=== PATIENT | female | born 1990 | race African-American/Black ===

== ENCOUNTER 2017-05-10 11:28 | Emergency (ER) | payer OTHER ==
[~2017-05-10] VITALS: Ht 167.6 cm; Wt 80.3 kg
[2017-05-10 11:28] VITALS: BP 144/83
[~2017-05-10 11:28] MED LIST: TRAZ50TA15 PO
--- NOTE | 2017-05-10 13:00 | ED.ADGEN ---
Past History Past Medical History: No Pertinent History Past Surgical History: No Surgical History Alcohol Use: None Drug Use: None Adult General HPI HPI Patient is a 26-year-old woman, with history of left knee pain and swelling, status post tearing her ACL several years ago, who is currently scheduled for a fourth surgery on his left knee. Patient wears a brace, and uses crutches, states that she is scheduled to follow-up with her orthopedist for surgery in a week and a half. 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 Patient states that [place] that this is the approved course for her at this time due to her injury and her chart, however her superiors are requesting a note indicating that this is the case. Patient states that she did attempt to contact her orthopedist today, but she is out of the office. 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 She denies any new or different symptoms, and states that she just requires and noted to excuse her from these activities until she is cleared by her orthopedist. Review of Systems Review of Systems Constitutional: Denies fever or chills [] Eyes: Denies change in visual acuity, redness, or eye pain [] HENT: Denies nasal congestion or sore throat [] Respiratory: Denies cough or shortness of breath [] Cardiovascular: No additional information not addressed in HPI [] GI: Denies abdominal pain, nausea, vomiting, bloody stools or diarrhea [] : Denies dysuria or hematuria [] Musculoskeletal: Denies back pain, left knee pain. Chronic. Integument: Denies rash or skin lesions [] Neurologic: Denies headache, focal weakness or sensory changes [] Endocrine: Denies polyuria or polydipsia [] Allergies Allergies Allergies Coded Allergies Type Severity Reaction Last Updated Verified No Known Drug Allergies 12/12/14 No Physical Exam Physical Exam Constitutional: Well developed, well nourished, no acute distress, non-toxic appearance. [] HENT: Normocephalic, atraumatic, bilateral external ears normal, oropharynx moist, no oral exudates, nose normal. [] Eyes: PERRLA, EOMI, conjunctiva normal, no discharge. [] Neck: Normal range of motion, no tenderness, supple, no stridor. [] Cardiovascular:Heart rate regular rhythm, no murmur, S1, S2, rubs or gallops. [] Lungs & Thorax: Bilateral breath sounds clear to auscultation, no wheezing, rhonchi, rales. No chest or crepitus or tenderness. [] Abdomen: Bowel sounds normal, soft, no tenderness, no masses, no rebound, rigidity, no guarding, no pulsatile masses. [] Skin: Warm, dry, no erythema, no rash. [] Back: No tenderness, no CVA tenderness. [] Extremities: Patient with tender to palpation throughout the left knee, she has a brace in place, no cyanosis, no clubbing, ROM intact, no edema. [] Neurologic: Alert and oriented X 3, normal motor function, normal sensory function, no focal deficits noted. [] Psychologic: Affect normal, judgement normal, mood normal. [] Current Patient Data Vital Signs Vital Signs Date Time Temp Pulse Resp B/P (MAP) Pulse Ox O2 Delivery O2 Flow Rate FiO2 05/10/17 11:28 99.2 129 18 95 Room Air EKG EKG Not indicated. [] Radiology/Procedures Radiology/Procedures Not indicated. [] Course & Med Decision Making Course & Med Decision Making Pertinent Labs and Imaging studies reviewed. (See chart for details) Patient denies any new injuries, or change in her chronic pain, states that she just was unable to reach her physician's office today to obtain additional documentation. I offered to contact the office, patient states her doctor is not there and she does not have a phone number on her for her provider. She declined additional evaluation and examination in the ED at this time, has returning brace in place, and is ambulatory with crutches without difficulty. She states she does not need any additional medications. After discussion, I did complete a note for the patient which stated that she would need to be cleared by her orthopedist before returning to prolonged outdoor exposure, or activities that would require standing or ambulation. Patient states she will take noted her superiors, and if there are any issues with this particular note she will contact orthopedist, she'll return to the ED if any new or concerning symptoms develop. Patient discharged in stable condition with plan as above. Final Impression Final Impression [] Problems: Dragon Disclaimer Dragon Disclaimer This electronic medical record was generated, in whole or in part, using a voice recognition dictation system. Departure: Impression: Primary Impression: Knee pain Disposition: 01 HOME, SELF-CARE Condition: IMPROVED SHIRLEY BARNETT DO May 10, 2017 13:00
== END 2017-05-10 12:19 | disposition home or self-care (01) ==
LOC: ER 11:28
DX: G89.29 Other chronic pain (principal); M25.562 Pain in left knee; R22.42 Localized swelling, mass and lump, left lower limb
CPT/HCPCS: 99281

== ENCOUNTER 2017-09-19 03:38 | Emergency (ER) | payer OTHER ==
[~2017-09-19] VITALS: Ht 167.6 cm; Wt 80.3 kg
--- NOTE | 2017-09-19 04:01 | PHYS DOC ---
General Chief Complaint: ABDOMINAL PAIN Stated Complaint: RIGHT SIDE FLANK PAIN Time Seen by MD: 03:40 Source: patient Exam Limitations: no limitations Problems: History of Present Illness Initial Comments Patient is a 27-year-old female who comes in the ED complaining of right lower quadrant abdominal pain. Patient states that for the past 3 days she's had worsening lower abdominal and now right lower quadrant pain. She says initially she thought maybe she had pulled a muscle or something, however for the past day and a half she's been sleeping more and not very active. She has not had much of an appetite today and earlier did have one episode of emesis, she's also had a few loose stools today. Pain is described as sharp and at times throbbing, worse with palpation and certain movements and relieved somewhat with rest. She says that on the way to the emergency department hitting bumps in the car caused pain in the area, she does admit to having a few glasses of wine earlier this evening. ED vital signs are stable Timing/Duration: other Severity: moderate Modifying Factors: worse with movement, improves with rest Associated Symptoms: nausea/vomiting, other Allergies: Coded Allergies: No Known Drug Allergies (Unverified , 09/19/17) Past Medical History Medical History: no pertinent history Surgical History: other (herniorrhaphy) Social History Smoker: non-smoker Alcohol: occasionally Drugs: none Review of Systems Constitutional: denies chills, denies diaphoresis, denies fever, denies malaise Respiratory: denies cough, denies shortness of breath Cardiovascular: denies chest pain, denies palpitations Gastrointestinal: see HPI, denies constipation Genitourinary: denies dysuria, denies frequency, denies hematuria Musculoskeletal: denies back pain, denies joint swelling, denies neck pain Psychiatric/Neurological: denies headache, denies numbness, denies paresthesia Physical Exam General Appearance: WD/WN (mild alcohol odor noted), mild distress (appears uncomfortable) Ear, Nose, Throat: hearing grossly normal, normal ENT inspection, normal pharynx Neck: non-tender, supple Respiratory: normal breath sounds, no respiratory distress Cardiovascular: normal peripheral pulses, regular rate, rhythm Gastrointestinal: soft (nondistended, right lower quadrant tenderness to palpation without rebound guarding or mass, bowel sounds normal) Rectal: deferred Back: no CVA tenderness, no vertebral tenderness Extremities: non-tender, normal inspection Neurologic/Psychiatric: private inquiry agent II-XII nml as tested, no motor/sensory deficits, alert (no slurring or discoordination), normal mood/affect, oriented x 3 Skin: normal color, warm/dry Orders, Labs, Meds Urine test negative Serum alcohol level 210, potassium 3.4 otherwise reassuring labs and urine workup PATIENT: LUIS ARMANDO ROTHMAN ACCOUNT: [id number] : 1990 LOCATION: ER AGE: 27 SEX: F EXAM STATUS: REG ER ORD. PHYSICIAN: JOSHUA DAMICO DO REASON: RLQ pain PROCEDURE: CT ABD PELV W/ IV CONTRST ONLY CT abdomen and pelvis with contrast. HISTORY: Right lower quadrant abdominal pain CT scan of the abdomen and pelvis was done using 75 mL Omnipaque 300 contrast. Lung bases are clear. There is no effusion. Osseous structures are unremarkable. A liver lesion is not identified. There is no calcified gallstone. Spleen and adrenal glands are normal. Pancreas is normal. There is no mass or hydronephrosis in the kidneys. There is no adenopathy. There is no ascites. Small bowel pattern is normal. Uterus and ovaries are normal. Appendix is normal. IMPRESSION: 1. Normal appendix. 2. No renal or ureteral calculus noted. 3. No abdominal or pelvic mass or other acute finding noted. RS Compliance Statement: One or more of the following individualized dose reduction techniques were utilized for this examination: 1. Automated exposure control 2. Adjustment of the mA and/or kV according to patient size 3. Use of iterative reconstruction technique Electronically signed by: Antony Moon MD (09/19/2017 5:03 AM) [facility] DICTATED AND SIGNED BY: ANTONY MOON MD DATE: 09/19/17 0458 CC: HEATHER SARGENT MD; JOSHUA DAMICO DO ~ [id number]: I rechecked the patient, I found her sleeping and resting comfortably. She aroused easily to verbal stimuli, I discussed findings with her and the fact that no emergent condition exists. I discussed drinking alcohol in moderation as well as the likelihood that she has a viral process. She says that she has nausea medication at home, she is ready for discharge home and is not driving. Departure Time of Disposition: 05:21 Disposition: 01 HOME, SELF-CARE Diagnosis: alcohol intoxication, gastroenteritis Condition: STABLE Patient Instructions: Alcohol Intoxication, Chkq-[id number], Viral Gastroenteritis , Lzbv-sk-[id number] Additional Instructions: Please review the patient education materials given by ED staff. Aggressive hydration with Gatorade or water. Drink alcohol in moderation, seek medical assistance if you feel alcohol is problem. Work excuse for today. Nasn-dhj-[id number] Tylenol and ibuprofen as needed. Follow-up with your doctor in 3-5 days if no better. Return to ED with new or changing symptoms. JOSHUA DAMICO DO Sep 19, 2017 04:01
[2017-09-19] MEDS ORDERED: IOHEXOL 300 MG/ML 75 ML VIAL. IV ONE (04:15)
[2017-09-19] MEDS ORDERED: IV NORMAL SALINE 1,000ML 1,000 ML IV SCH (04:15)
[2017-09-19] MEDS ORDERED: ONDANSETRON PF 4 MG/2 ML VIAL. IV ONE (04:15)
[2017-09-19 04:23] LABS: BASO % 1 % (0-3); EOS # 0.1 x10^3/uL (0.0-0.7); EOS % 3 % (0-3); HEMATOCRIT 36.6 % (36.0-47.0); HEMOGLOBIN 12.4 g/dL (12.0-15.5); LYMPH # 2.7 x10^3/uL (1.0-4.8); LYMPH % 53 % (24-48); MEAN CORPUSCULAR HEMOGLOBIN 30 pg (25-35); MEAN CORPUSCULAR HGB CONC 34 g/dL (31-37); MEAN CORPUSCULAR VOLUME 90 fL (79-100); MONO # 0.3 x10^3/uL (0.0-1.1); MONO % 6 % (0-9); NEUT % 38 % (31-73); PLATELET COUNT 331 x10^3/uL (140-400); RED BLOOD COUNT 4.09 x10^6/uL (3.50-5.40); RED CELL DISTRIBUTION WIDTH 15.4 % (11.5-14.5); WHITE BLOOD COUNT 5.2 x10^3/uL (4.0-11.0)
[2017-09-19] MEDS ORDERED: CONTRAST GIVEN MC PRN (04:30)
[2017-09-19 04:36] LABS: BILIRUBIN,URINE NEG (NEG); CLARITY,URINE CLEAR; COLOR,URINE YELLOW; GLUCOSE,URINE NEG (NEG); UROBILINOGEN,URINE 0.2 mg/dL (0.2 mg/dL)
[2017-09-19 04:37] LABS: BACTERIA,URINE 0 /HPF (0-FEW); NITRITE,URINE NEG (NEG); RBC,URINE RARE /HPF (0-2); WBC,URINE RARE /HPF (0-4)
[2017-09-19 04:38] LABS: BARBITURATES NEG (NEG); BENZODIAZEPINES NEG (NEG); CANNABINOIDS NEG (NEG); COCAINE NEG (NEG); METHADONE NEG (NEG); OPIATES NEG (NEG); PHENCYCLIDINE NEG (NEG)
[2017-09-19 04:41] LABS: AMPHETAMINE/METHAMPHETAMINE NEG (NEG)
[2017-09-19 04:42] LABS: ALBUMIN 3.6 g/dL (3.4-5.0); ALBUMIN/GLOBULIN RATIO 0.9 (1.0-1.7); CALCIUM 8.4 mg/dL (8.5-10.1); CREATININE 0.6 mg/dL (0.6-1.0); GFR 146.2; POTASSIUM 3.4 mmol/L (3.5-5.1); TOTAL BILIRUBIN 0.1 mg/dL (0.2-1.0); TOTAL PROTEIN 7.5 g/dL (6.4-8.2)
[2017-09-19] MEDS ORDERED: ACETAMINOPHEN 325 MG TABLET PO ONE ×2 (04:45→05:21)
--- NOTE | 2017-09-19 05:07 | RAD ---
CT abdomen and pelvis with contrast. HISTORY: Right lower quadrant abdominal pain CT scan of the abdomen and pelvis was done using 75 mL Omnipaque 300 contrast. Lung bases are clear. There is no effusion. Osseous structures are unremarkable. A liver lesion is not identified. There is no calcified gallstone. Spleen and adrenal glands are normal. Pancreas is normal. There is no mass or hydronephrosis in the kidneys. There is no adenopathy. There is no ascites. Small bowel pattern is normal. Uterus and ovaries are normal. Appendix is normal. IMPRESSION: 1. Normal appendix. 2. No renal or ureteral calculus noted. 3. No abdominal or pelvic mass or other acute finding noted. PQRS Compliance Statement: One or more of the following individualized dose reduction techniques were utilized for this examination: 1. Automated exposure control 2. Adjustment of the mA and/or kV according to patient size 3. Use of iterative reconstruction technique Electronically signed by: Antony Moon MD (09/19/2017 5:03 AM) [facility]
[2017-09-19 05:17] VITALS: BP 125/76
== END 2017-09-19 05:31 | disposition home or self-care (01) ==
LOC: ER 03:38
DX: K52.9 Noninfective gastroenteritis and colitis, unspecified (principal); F10.129 Alcohol abuse with intoxication, unspecified
CPT/HCPCS: 36415; 74177; 80053; 80307; 81001; 81025; 83690; 85025; 96361; 96374; 99285; G0480; J2405; Q9967; G0479; J7030

== ENCOUNTER 2017-11-25 23:03 | Emergency (ER) | payer OTHER ==
[~2017-11-25] VITALS: Ht 167.6 cm; Wt 85.3 kg
[2017-11-25 23:08] VITALS: BP 115/82
[2017-11-25] MEDS ORDERED: ERYT1OIN6 OP (23:35)
--- NOTE | 2017-11-25 23:35 | PHYS DOC ---
Past History Past Medical History: Anxiety, Depression Past Surgical History: Other Alcohol Use: Occasionally Drug Use: None Adult General Chief Complaint Chief Complaint: EYE PROBLEMS HPI HPI Patient is a 27 year old female who presents with complaint of left eye redness and itching. Patient states her symptoms started approximately 1 week ago. Patient states that she started having worsening symptoms this morning and started having sensitivity to light in the left eye. Patient states that she has had vision changes in her left eye, noting a "ribbon along the outer half of my visual field." Patient states that she has had this evaluated [facility] which [facility] not [facility] any particular cause. Patient states that this continues and has not changed. Patient states that the eye has become more itchy and has had thick drainage in the morning which clears during the daytime. Patient had been using [id number] eyedrops to the left eye with no significant improvement. Review of Systems Review of Systems Constitutional: Denies fever or chills [] Eyes: Redness, pain, itching, drainage of left eye[] HENT: Denies nasal congestion or sore throat [] Musculoskeletal: Denies back pain or joint pain [] Integument: Denies rash or skin lesions [] Neurologic: Denies headache, focal weakness or sensory changes [] All other systems were reviewed and found to be within normal limits, except as documented in this note. Allergies Allergies Allergies Coded Allergies Type Severity Reaction Last Updated Verified No Known Drug Allergies 09/19/17 No Physical Exam Physical Exam Constitutional: Alert, afebrile, nontoxic appearance. [] HENT: Normocephalic, atraumatic, bilateral external ears normal, oropharynx moist, no oral exudates, nose normal. [] Eyes: PERRLA, EOMI, sensitivity of left eye to light, no consensual photophobia , conjunctiva swollen and inflamed, scleral injection present, clear exudate from left eye. [] Neck: Normal range of motion, no tenderness, supple, no stridor. [] Extremities: No tenderness, no cyanosis, no clubbing, ROM intact, no edema. [] Neurologic: Alert and oriented X 3, normal motor function, normal sensory function, no focal deficits noted. [] Current Patient Data Vital Signs Vital Signs Date Time Temp Pulse Resp B/P (MAP) Pulse Ox O2 Delivery O2 Flow Rate FiO2 11/25/17 23:08 98.7 89 20 99 Room Air Lab Results Not performed EKG EKG Not performed[] Radiology/Procedures Radiology/Procedures Not performed[] Course & Med Decision Making Course & Med Decision Making Pertinent Labs and Imaging studies reviewed. (See chart for details) The patient's visual acuity was 20/50 in the left eye and 20/30 in the right eye. The patient's symptoms appear to be a form of conjunctivitis though episcleritis is also part of the differential. The patient's vision changes noted have been present over the past week and have been previously evaluated by pulmonology and do not seem to have changed from what the patient has described. The patient will be treated with erythromycin ophthalmic ointment. Patient was also given a Decadron injection in the emergency department to help with inflammation. I advised that the patient follow-up tomorrow with ophthalmology. Advised return emergency department for any worsening symptoms. Patient voiced understanding and in agreement with treatment plan. Dragon Disclaimer Dragon Disclaimer This electronic medical record was generated, in whole or in part, using a voice recognition dictation system. Departure Departure: Impression: Primary Impression: Conjunctivitis Disposition: HOME, SELF-CARE Condition: STABLE Referrals: NON,STAFF (PCP) BRIGETTE ROGERS DO Patient Instructions: Conjunctivitis (Viral and Bacterial) Additional Instructions: Follow-up tomorrow with ophthalmology. Return to the emergency department for any worsening symptoms. Scripts Erythromycin Base (Erythromycin) 1 Gm Oint...g. 0.5 GM OP QID for 5 Days, #1 TUBE Prov: AMY ALEJO MD 11/25/17 Problem Qualifiers Primary Impression: Conjunctivitis Conjunctivitis type: acute Acute conjunctivitis type: unspecified Laterality: left Qualified Codes: H10.32 - Unspecified acute conjunctivitis, left eye AMY ALEJO MD Nov 25, 2017 23:35
[2017-11-25] MEDS ORDERED: DEXAMETHASONE SOD PHOS 10 MG/ML VIAL IM ONE (23:45)
[2017-11-25] MEDS ORDERED: ERYTHROMYCIN 0.5% OPHTH OINTMENT 1GM TUBE. OS ONE (23:45)
== END 2017-11-26 00:05 | disposition home or self-care (01) ==
LOC: ER 23:03
DX: H10.32 Unspecified acute conjunctivitis, left eye (principal)
CPT/HCPCS: 96372; 99283; J1100

== ENCOUNTER 2018-01-29 14:19 | Emergency (ER) | payer OTHER ==
[~2018-01-29] VITALS: Ht 167.6 cm; Wt 86.2 kg
[~2018-01-29 14:19] MED LIST changes: +ERYT1OIN6 OP
[2018-01-29 14:36] VITALS: BP 145/84
[2018-01-29] MEDS ORDERED: KETOROLAC 60 MG/2 ML VIAL. IM ONE (15:15)
--- NOTE | 2018-01-29 15:46 | RAD ---
Right shoulder, 3 views, 01/29/2018: HISTORY: Fall, right shoulder pain, back pain No fracture or dislocation is identified. IMPRESSION: No significant right shoulder abnormality is detected. Lumbar spine, 3 views, 01/29/2018: There is partial sacralization of L5. No fracture or dislocation is identified. The paraspinous soft tissues are unremarkable. IMPRESSION: 1. Transitional-type vertebra at the lumbosacral junction. 2. No acute bony abnormality is detected. Right RIBS with chest, 3 views, 01/29/2018: No rib fracture is identified. There is no evidence of underlying pneumothorax, hemothorax or pulmonary infiltrate. The heart size is normal. IMPRESSION: No significant right rib abnormality is detected. Electronically signed by: Woody Walton MD (01/29/2018 3:43 PM) [facility]
[2018-01-29] MEDS ORDERED: CYCL-331 PO (16:15)
[2018-01-29] MEDS ORDERED: HYDR-971 PO (16:15)
--- NOTE | 2018-01-29 16:15 | PHYS DOC ---
Past History Past Medical History: Anxiety, Depression Past Surgical History: Other Alcohol Use: None Drug Use: None Adult General Chief Complaint Chief Complaint: SHOULDER INJURY HPI HPI 27-year-old right handed female patient states she had an accidental fall while she was at the gym yesterday and landed on her right hand. Patient denies head injury and complaining of pain in right shoulder and right upper chest wall and her back. Patient said the pain is constant and getting force with movement and rated her pain 9/10. Patient states she has had history of chronic back pain that getting force after her fall. His focal neuro deficit, fever and chills, headache, . Patient states she took ibuprofen last night without improvement of her pain. Review of Systems Review of Systems Constitutional: Denies fever or chills [] Eyes: Denies change in visual acuity, redness, or eye pain [] HENT: Denies nasal congestion or sore throat [] Respiratory: Denies cough or shortness of breath [] Cardiovascular: No additional information not addressed in HPI [] GI: Denies abdominal pain, nausea, vomiting, bloody stools or diarrhea [] : Denies dysuria or hematuria [] Musculoskeletal: Reports back pain and joint pain Integument: Denies rash or skin lesions [] Neurologic: Denies headache, focal weakness or sensory changes [] Endocrine: Denies polyuria or polydipsia [] All other systems were reviewed and found to be within normal limits, except as documented in this note. Current Medications Current Medications Current Medications Medications (Trade) Dose Ordered Sig/Alka Start Time Stop Time Status Last Admin Dose Admin Ketorolac Tromethamine (Toradol) 60 mg 1X ONCE 01/29/18 15:15 01/29/18 15:16 DC 01/29/18 15:09 60 MG Allergies Allergies Allergies Coded Allergies Type Severity Reaction Last Updated Verified No Known Drug Allergies 09/19/17 No Physical Exam Physical Exam Constitutional: Well developed, well nourished, mild distress, non-toxic appearance. [] HENT: Normocephalic, atraumatic Eyes: PERRLA, EOMI, conjunctiva normal, no discharge. [] Neck: Normal range of motion, no tenderness, supple, no stridor. [] Cardiovascular:Heart rate regular rhythm, no murmur [] Lungs & Thorax: Bilateral breath sounds clear to auscultation , anterior chest wall without sign of injury or deformity or tenderness[] Abdomen: Bowel sounds normal, soft, no tenderness, no masses, no pulsatile masses. [] Skin: Warm, dry, no erythema, no rash. [] Back: No midline tenderness, no CVA tenderness, bilateral upper lumbar paraspinal muscle tenderness. [] Extremities: No tenderness, no cyanosis, no clubbing, ROM intact, no edema. [] Neurologic: Alert and oriented X 3, normal motor function, normal sensory function, no focal deficits noted. [] Psychologic: Affect normal, judgement normal, mood normal. [] Current Patient Data Vital Signs Vital Signs Date Time Temp Pulse Resp B/P (MAP) Pulse Ox O2 Delivery O2 Flow Rate FiO2 01/29/18 14:36 98.3 74 20 98 Room Air EKG EKG [] Radiology/Procedures Radiology/Procedures [][address] [id number] IMAGING REPORT Signed PATIENT: LUIS ARMANDO ROTHMAN ACCOUNT: [id number] : 1990 LOCATION: ER AGE: 27 SEX: F EXAM STATUS: REG ER ORD. PHYSICIAN: THERESA DIAS MD REASON: injury PROCEDURE: LUMBAR SPINE 2-3V Right shoulder, 3 views, 01/29/2018: HISTORY: Fall, right shoulder pain, back pain No fracture or dislocation is identified. IMPRESSION: No significant right shoulder abnormality is detected. Lumbar spine, 3 views, 01/29/2018: There is partial sacralization of L5. No fracture or dislocation is identified. The paraspinous soft tissues are unremarkable. IMPRESSION: 1. Transitional-type vertebra at the lumbosacral junction. 2. No acute bony abnormality is detected. Right RIBS with chest, 3 views, 01/29/2018: No rib fracture is identified. There is no evidence of underlying pneumothorax, hemothorax or pulmonary infiltrate. The heart size is normal. IMPRESSION: No significant right rib abnormality is detected. Electronically signed by: Woody Walton MD (01/29/2018 3:43 PM) [facility] DICTATED AND SIGNED BY: WOODY WALTON MD DATE: 01/29/18 9160 CC: THERESA DIAS MD; LORENA HIGGINS DO ~ Course & Med Decision Making Course & Med Decision Making Pertinent Imaging studies reviewed. (See chart for details) Evolution of patient in ER showed 27-year-old female patient with a fall and injury to right side of body. Patient had unremarkable physical exam except for muscle spasm of the lumbar spine and limited range of motion of right arm because of pain without deformity of shoulder. X-ray of shoulder and chest and keeps and lumbar did not show acute problem. Patient treated with Toradol and shoulder splint was applied and patient instructed to apply ice and follow up with her primary care physician. [] Dragon Disclaimer Dragon Disclaimer This electronic medical record was generated, in whole or in part, using a voice recognition dictation system. Departure Departure: Impression: Primary Impression: Sprain of right shoulder Additional Impressions: Chest wall injury Acute lumbar myofascial strain Fall Disposition: HOME, SELF-CARE (At 1612) Condition: IMPROVED Referrals: LORENA HIGGINS DO (PCP) Patient Instructions: Lumbosacral Strain, Shoulder Sprain Additional Instructions: Apply ice on the affected area Follow-up with your primary care physician in 3-5 days Return to ER if not getting better Scripts Hydrocodone Bit/Acetaminophen (NORCO 5-325 TABLET) 1 Each Tablet 1 TAB PO PRN Q6HRS PRN for PAIN, #14 TAB 0 Refills Prov: THERESA DIAS MD 01/29/18 Cyclobenzaprine Hcl (CYCLOBENZAPRINE HCL) 10 Mg Tablet 1 TAB PO TID, #21 TAB Prov: THERESA DIAS MD 01/29/18 Problem Qualifiers THERESA DIAS MD January 29, 2018 16:15
== END 2018-01-29 16:22 | disposition home or self-care (01) ==
LOC: ER 14:19
DX: S43.401A Unspecified sprain of right shoulder joint, initial encounter (principal); S39.012A Strain of muscle, fascia and tendon of lower back, initial encounter; S29.9XXA Unspecified injury of thorax, initial encounter; G89.29 Other chronic pain; F41.9 Anxiety disorder, unspecified; F32.9 Major depressive disorder, single episode, unspecified; W19.XXXA Unspecified fall, initial encounter; Y93.89 Activity, other specified; Y99.8 Other external cause status; Y92.89 Other specified places as the place of occurrence of the external cause
CPT/HCPCS: 29105; 71101; 72100; 73030; 96372; 99284; J1885